=== PATIENT | female | born 1960 | race Caucasian/White ===

== ENCOUNTER → 2017-06-15 | Outpatient (CLI) | payer OTHER ==
[~2017-06-15] MED LIST: ESTR0.5T3 PO; HYDR-2680 PO; LOSA25TA4 PO; OMEP40CA5 PO
--- NOTE | 2017-06-15 13:01 | RAD ---
PQRS Compliance Statement: One or more of the following individualized dose reduction techniques were utilized for this examination: 1. Automated exposure control 2. Adjustment of the mA and/or kV according to patient size 3. Use of iterative reconstruction technique Neck CT with contrast: 06/15/2017 Indication: Acute pharyngitis. Technique: Multiple axial images were obtained through the neck following intravenous injection of nonionic contrast material. Coronal and sagittal reformats are provided. Comparison: None. Findings: The visualized brain parenchyma appears intact. The skull base is normal. There is mild mucosal thickening involving the maxillary sinuses with a small mucus retention cyst in the right maxillary sinus. Visualized portions of the orbits appear normal. The sella turcica and cavernous sinus regions appear intact. The mastoid air cells are normal. The fossa of Rosenmuller is normal. There is mild prominence of Waldeyer's ring. There is mild asymmetric soft tissue thickening of the right tongue base without definite mass. The parotid space contents and inventory control clerk space contents appear intact. The parapharyngeal spaces are normal. The submandibular and sublingual space contents appear intact. The epiglottis, aryepiglottic folds, and piriform sinuses are normal. The vallecula appears normal. The larynx and trachea are normal. The thyroid lobes appear intact. The carotid space contents are normal. There is no deep cervical chain adenopathy observed. The jugulodigastric regions appear intact. The perivertebral space contents are normal. The supraclavicular regions appear intact. The visualized mediastinum is normal. The visualized lungs appear intact. The visualized osseous structures are normal. Impression: 1. Mild prominence of Waldeyer's ring with patent nasopharynx. Findings may be seen in the setting of pharyngitis. 2. Mild asymmetric soft tissue prominence of the right tongue base without definite mucosal lesion by CT. No pathologically enlarged cervical lymph nodes. Recommend direct visualization for further evaluation. Electronically signed by: Lucero Castaneda MD (06/15/2017 12:58 PM) [id number]
[2017-06-15] MEDS: IOHEXOL 300 MG/ML 75 ML VIAL. IV ONE (13:21)
== END | disposition home or self-care (01) ==
LOC: CT 11:37
PROVIDERS: ATTEND Physician Assistant
DX: J02.9 Acute pharyngitis, unspecified (principal); J34.1 Cyst and mucocele of nose and nasal sinus
CPT/HCPCS: 70491; Q9967

== ENCOUNTER → 2018-11-23 | Outpatient (CLI) | payer OTHER ==
[~2018-11-23] MED LIST changes: +LOSA25TA11 PO; -LOSA25TA4 PO; +OMEP40CA45 PO; -OMEP40CA5 PO
--- NOTE | 2018-11-23 17:18 | RAD ---
Bilateral lower extremity arterial ultrasound History: Bilateral foot pain Findings: Multiple grayscale, color, and duplex spectral analysis sonographic images were acquired of the lower extremity arteries bilaterally. There are no previous similar exams. No significant stenosis or vessel occlusion is demonstrated, triphasic and biphasic waveforms bilaterally. There is minimal scattered plaque. Velocities in cm/sec: RIGHT Common femoral artery 115 Profunda femoris artery 77 Proximal SFA 103 Mid SFA 87 Distal SFA 93 Popliteal artery 79 Posterior tibial artery 39 proximally and 106 distally Peroneal artery 84 Anterior tibial artery 49 Dorsalis pedis artery 99 LEFT: Common femoral artery 93 Profunda femoris artery 72 Proximal SFA 88 Mid SFA 84 Distal SFA 93 Popliteal artery 64 Posterior tibial artery 47 proximally and 108 distally Peroneal artery 57 Anterior tibial artery 56 Dorsalis pedis artery 64 Impression: 1. No significant stenosis is demonstrated, scattered mild plaque bilaterally. Electronically signed by: Pro Medrano MD (11/23/2018 5:15 PM) [id number]
== END | disposition home or self-care (01) ==
LOC: US 13:48
PROVIDERS: ATTEND Specialist
DX: I70.203 Unspecified atherosclerosis of native arteries of extremities, bilateral legs (principal)
CPT/HCPCS: 93925

== ENCOUNTER → 2019-08-02 | Outpatient (CLI) | payer OTHER ==
--- NOTE | 2019-08-02 16:59 | RAD ---
EXAM: 3 views right knee DATE: 08/02/2019 12:00 AM INDICATION: Reason: RIGHT KNEE PAIN / Spl. Instructions: / History: COMPARISON: No Prior FINDINGS: Mild medial compartment joint space narrowing with small tricompartmental osteophytes. No evidence of acute fracture or dislocation. No joint effusion. IMPRESSION: 1. No evidence of acute fracture or dislocation. 2. Mild right knee joint degenerative change. Electronically signed by: Omar Baker MD (08/02/2019 4:56 PM) MICHAEL
== END | disposition home or self-care (01) ==
LOC: DXRAD 15:21
PROVIDERS: ATTEND Specialist
DX: M17.11 Unilateral primary osteoarthritis, right knee (principal); M25.761 Osteophyte, right knee
CPT/HCPCS: 73562

== ENCOUNTER → 2019-08-18 | Outpatient (CLI) | payer OTHER ==
--- NOTE | 2019-08-18 10:07 | CARD ---
MR#: [id number] Date of Study: 08/18/2019 Ordering Physician: KENNY CHRISTIE, Referring Physician: KENNY CHRISTIE, Tech: Tiffanie Huggins APPROVED REPORT EXAM: Two-dimensional and M-mode echocardiogram with Doppler and color Doppler. Other Information HR: 95bpm INDICATION Pulmonary Hypertention RISK FACTORS Hypertension 2D DIMENSIONS Left Atrium(2D)3.4 (1.6-4.0cm)IVSd1.3 (0.7-1.1cm) Aortic Root(2D)3.4 (2.0-3.7cm)LVDd4.5 (3.9-5.9cm) LVOT Diameter1.9 (1.8-2.4cm)PWd1.3 (0.7-1.1cm) LVDs3.0 (2.5-4.0cm)FS (%) 32.8 % SV56.6 mlLVEF(%)61.4 (>50%) Aortic Valve AoV Peak Damian.133.8cm/sAoV VTI26.7cm AO Peak GR.7.2mmHgLVOT Peak Damian.117.0cm/s LVOT VTI 24.43cmAO Mean GR.4mmHg GLORIA (VMAX)2.75ol5JZD (VTI)2.51cm2 Mitral Valve MV E Mrxxzefq32.0cm/sMV E Peak Gr.3mmHg MV DECEL [id number] A Pldofjhi88.4cm/s MV E Mean Gr.2mmHgE/A Ratio0.8 Pulmonary Valve PV Peak Rxqoowuy06.1cm/sPV Peak Grad.3mmHg Tricuspid Valve TR P. Evekugrm784ki/sRAP HCLSSGCC4byBa TR Peak Gr.07otUfSQMN55viDe Pulmonary Vein S1 Rsvyostn06.3cm/sD2 Ijqmfics08.3cm/s LEFT VENTRICLE The left ventricle is normal size. There is borderline to mild concentric left ventricular hypertroph y. The left ventricular systolic function is normal and the ejection fraction is within normal range. EF 55% There is normal LV segmental wall motion. Transmitral Doppler flow pattern is Grade I-abnorma l relaxation pattern. RIGHT VENTRICLE The right ventricle is normal size. There is normal right ventricular wall thickness. The right ventr icular systolic function is normal. ATRIA The left atrium size is normal. The right atrium size is normal. The interatrial septum is intact wit h no evidence for an atrial septal defect or patent foramen ovale as noted on 2-D or Doppler imaging. AORTIC VALVE The aortic valve is normal in structure and function. Doppler and Color Flow revealed no significant aortic regurgitation. There is no significant aortic valvular stenosis. Calculated aortic valve area is 2.5 cm2 with maximum pressure gradient of 7 mmHg and mean pressure gradient of 4 mmHg. MITRAL VALVE The mitral valve is normal in structure and function. There is no evidence of mitral valve prolapse. There is no mitral valve stenosis. Doppler and Color Flow revealed no mitral valve regurgitation note d. TRICUSPID VALVE The tricuspid valve is normal in structure and function. Doppler and Color Flow revealed trace tricus pid regurgitation with an estimated PAP of 23 mmHg. There is no tricuspid valve stenosis. PULMONIC VALVE The pulmonic valve is not well visualized. Doppler and Color Flow revealed no pulmonic valvular regur gitation. There is no pulmonic valvular stenosis. GREAT VESSELS The aortic root is normal in size. The ascending aorta is normal in size. The IVC was not visualized. PERICARDIAL EFFUSION There is no evidence of significant pericardial effusion. Critical Notification Critical Value: No <Conclusion> The left ventricular systolic function is normal and the ejection fraction is within normal range. EF 55% There is normal LV segmental wall motion. Doppler and Color Flow revealed trace tricuspid regurgitation with an estimated PAP of 23 mmHg. No significant pulmonary HTN or valvular disease noted. Signed by : Fuad Agudelo, Electronically Approved : 08/18/2019 10:07:09
== END | disposition home or self-care (01) ==
LOC: ECHO 08:45
PROVIDERS: ATTEND Specialist
DX: I11.9 Hypertensive heart disease without heart failure (principal); H34.212 Partial retinal artery occlusion, left eye
CPT/HCPCS: 93306

== ENCOUNTER → 2019-09-05 | Outpatient (CLI) | payer OTHER ==
--- NOTE | 2019-09-05 12:48 | RAD ---
EXAM: Carotid Doppler sonogram. HISTORY: Atherosclerosis. Hypertension. TECHNIQUE: Madrigal scale and color Doppler sonographic evaluation of the neck with spectral waveform analysis was performed and static images are submitted for review. FINDINGS: The peak systolic velocity within the right common carotid artery is 136 cm/sec. The peak systolic velocity within the right internal carotid artery is 97 cm/sec and the end diastolic velocity within the right internal carotid artery is 42 cm/sec. The right ICA/CCA ratio is 0.83. The peak systolic velocity within the left common carotid artery is 107 cm/sec. The peak systolic velocity within the left internal carotid artery is 104 cm/sec and the end diastolic velocity within the left internal carotid artery is 41 cm/sec. The left ICA/CCA ratio is 1.0. There is normal antegrade flow within both vertebral arteries. There are prominent right cervical chain lymph nodes. These are nonspecific and may be reactive in etiology. IMPRESSION: 1. Mildly elevated and diastolic velocities within the bilateral internal carotid arteries. There is no elevated peak systolic velocity or elevated ICA to CCA ratio to suggest greater than 50 percent stenosis involving the internal carotid arteries. 2. Prominent right cervical chain lymph nodes. These are nonspecific and may be reactive in etiology. PQRS Compliance Statement - Stenosis calculations for CT, MR and conventional angiography are based upon measurement of the distal ICA diameter in accordance with the NASCET methodology. Stenosis calculations for carotid ultrasound studies are derived from validated velocity criteria which are known to correlate with the NASCET methodology. Electronically signed by: Merissa Peña MD (09/05/2019 12:45 PM) [id number]
== END | disposition home or self-care (01) ==
LOC: US 07:53
PROVIDERS: ATTEND Specialist
DX: R07.9 Chest pain, unspecified (principal); H34.212 Partial retinal artery occlusion, left eye
CPT/HCPCS: 93880

== ENCOUNTER → 2019-10-11 | Outpatient (CLI) | payer OTHER ==
--- NOTE | 2019-10-11 10:03 | RAD ---
Carotid doppler ultrasound History: Left retinal artery occlusion, hypertension, dizziness, lightheaded Multiple grayscale, color, and duplex spectral analysis waveform sonographic images were acquired of the carotid, subclavian, and vertebral arteries. Comparison: None Findings: RIGHT: PSV cm/sec EDV cm/sec Common carotid artery 109 24 Maximal internal carotid artery 71 26 External carotid artery 104 Vertebral artery 79 ICA/CCA ratio 0.65 LEFT: PSV cm/sec EDV cm/sec Common carotid artery 91 22 Maximum internal carotid artery 81 28 External carotid artery 114 Vertebral artery 30 ICA/CCA ratio 0.89 Velocities used to determine stenosis are known to correlate with NASCET angiographic criteria. There is antegrade flow in the bilateral vertebral arteries. No significant stenosis is demonstrated on grayscale or color images. Incidental note is made of several nonspecific nodes of the visualized bilateral neck. Impression: 1. There is no evidence of a hemodynamically significant stenosis. Electronically signed by: Pro Medrano MD (10/11/2019 10:00 AM) [id number]
== END | disposition home or self-care (01) ==
LOC: US 08:54
PROVIDERS: ATTEND Specialist
DX: H34.212 Partial retinal artery occlusion, left eye (principal)
CPT/HCPCS: 93880

== ENCOUNTER → 2020-02-15 | Outpatient (CLI) | payer OTHER ==
[~2020-02-15] MED LIST changes: +IOHEXOL 240 MG/ML 50ML VIAL. ONE; +IOHEXOL 240 MG/ML 50ML VIAL. PO ONE; +IOHEXOL 300 MG/ML 75 ML VIAL. IV ONE
[2020-02-15 11:51] LABS: CALCIUM 8.9 mg/dL (8.5-10.1); CREATININE 0.7 mg/dL (0.6-1.0); GFR 85.6; POTASSIUM 3.3 mmol/L (3.5-5.1)
[2020-02-15 12:18] LABS: BACTERIA,URINE FEW /HPF (0-FEW); BILIRUBIN,URINE NEG (NEG); CLARITY,URINE HAZY; COLOR,URINE YELLOW; GLUCOSE,URINE 100 mg/dL (NEG); NITRITE,URINE NEG (NEG); RBC,URINE 0 /HPF (0-2); SQUAMOUS EPITHELIAL CELL,UR FEW /LPF; UROBILINOGEN,URINE 0.2 mg/dL (0.2 mg/dL); WBC,URINE RARE /HPF (0-4)
--- NOTE | 2020-02-15 12:27 | RAD ---
EXAM: Abdomen and pelvis CT with intravenous contrast. HISTORY: Pain. TECHNIQUE: Computed tomographic images of the abdomen and pelvis were obtained following the administ ration of intravenous contrast. Multiplanar reformatting was performed. *One or more of the following individualized dose reduction techniques were utilized for this examina tion: 1. Automated exposure control. 2. Adjustment of the mA and/or kV according to patient size. 3. Use of iterative reconstruction technique. COMPARISON: 10/18/2013. FINDINGS: Evaluation of the lower thorax demonstrates no infiltrate or pleural effusion. There is sli ght pleural nodularity along the posterior left thorax likely due to scarring. There is a moderate hiatal hernia. There is hepatic steatosis with focal fatty sparing along the falc iform ligament. There is hepatosplenomegaly. The gallbladder is surgically absent. The pancreas, sple en, adrenal glands and kidneys are unremarkable. There is no appendicitis. There is no bowel obstruction. There is segmental wall thickening with exte nsive surrounding stranding and prominent diverticula within the mid transverse colon, the appearance of which favors acute diverticulitis. The superimposed on mid and distal colonic diverticulosis. The bladder is unremarkable. The uterus is absent. The aorta is normal in caliber. There is no lymphadenopathy. There is no suspicious osseous lesion. There are degenerative changes at the lumbosacral junction. IMPRESSION: 1. Segmental wall thickening with extensive surrounding stranding and associated prominent diverticul a within the mid transverse colon, the appearance of which favors acute diverticulitis. No drainable fluid collection is seen. The superimposed on colonic diverticulosis. 2. Hepatosplenomegaly and hepatic steatosis. 3. Moderate hiatal hernia. Electronically signed by: Merissa Peña MD (02/15/2020 12:24 PM) [id number]
== END ==
LOC: CT 10:21
PROVIDERS: ATTEND Physician Assistant
DX: K57.30 Diverticulosis of large intestine without perforation or abscess without bleeding (principal); R16.2 Hepatomegaly with splenomegaly, not elsewhere classified; K76.0 Fatty (change of) liver, not elsewhere classified; K44.9 Diaphragmatic hernia without obstruction or gangrene; Z90.710 Acquired absence of both cervix and uterus; Z90.49 Acquired absence of other specified parts of digestive tract
CPT/HCPCS: 36415; 74177; 80048; 81001; Q9966; Q9967

== ENCOUNTER → 2021-06-16 | Outpatient (CLI) | payer OTHER ==
[~2021-06-16] MED LIST changes: -IOHEXOL 240 MG/ML 50ML VIAL. ONE; -IOHEXOL 240 MG/ML 50ML VIAL. PO ONE; -IOHEXOL 300 MG/ML 75 ML VIAL. IV ONE; -OMEP40CA45 PO; +OMEP40CA7 PO
--- NOTE | 2021-06-16 12:08 | RAD ---
PQRS Compliance Statement: One or more of the following individualized dose reduction techniques were utilized for this examinat ion: 1. Automated exposure control 2. Adjustment of the mA and/or kV according to patient size 3. Use of iterative reconstruction technique CT abdomen/pelvis without contrast 06/16/2021 11:40 AM INDICATION: Diverticulitis COMPARISON: CT abdomen/pelvis 02/15/2020 TECHNIQUE: Multiple axial CT images of the abdomen and pelvis were obtained without intravenous contr ast. Coronal and sagittal reformats are provided. FINDINGS: Lung bases are clear. Moderate-sized hiatal hernia. Evaluation of solid abdominal viscera i s limited by lack of intravenous contrast. Hypoattenuation of the hepatic parenchyma suggestive of he patic steatosis. Liver, spleen, adrenal glands and pancreas are otherwise normal in appearance. Gallb ladder surgically absent. The abdominal aorta is normal in course and caliber. There are no pathologi rosa enlarged lymph nodes in the abdomen and pelvis. There is no abdominal free fluid. There is no f ree intraperitoneal air. Mild to moderate diverticulosis. Small large bowel loops are normal in calib er. No bowel obstruction or inflammation. Appendix is normal. Small bilateral extrarenal pelvis ident ified. The kidneys are relatively symmetric in appearance. There is no suspicious renal mass within t he limitations of a noncontrast examination. There is no hydronephrosis. There are no calculi within the kidneys, ureters or urinary bladder. Urinary bladder is within normal limits given degree of dist ention. Hysterectomy changes are present. No suspicious adnexal mass. No suspicious osseous abnormali ty is identified. IMPRESSION: Mild to moderate diverticulosis without adjacent inflammatory changes to suggest diverticulitis. Electronically signed by: Lucero Castaneda MD (06/16/2021 12:06 PM) [id number]
== END ==
LOC: CT 11:13
PROVIDERS: ATTEND Specialist
DX: K57.92 Diverticulitis of intestine, part unspecified, without perforation or abscess without bleeding (principal); K44.9 Diaphragmatic hernia without obstruction or gangrene; Z90.49 Acquired absence of other specified parts of digestive tract; Z90.710 Acquired absence of both cervix and uterus
CPT/HCPCS: 74176